=== PATIENT | male | born 1965 | race Caucasian/White ===

== ENCOUNTER 2021-06-18 17:59 | Inpatient (IN) ==
[2021-06-18 18:43] LABS: Bilirubin,Urine Negative (Negative); Blood,Urine Negative (Negative); Clarity,Urine Clear (Clear); Color,Urine Light-Yellow (Yellow); Glucose,Urine (UA) >=1000 mg/dL (Normal); Hyaline Casts,Urine Few per lpf (None Seen); Ketones,Urine Negative (Negative); Leukocyte Esterase,Urine Negative (Negative); Mucus,Urine Few per lpf (None-Few); Nitrite,Urine Negative (Negative); Protein,Urine 70 mg/dL (Neg-Trace); Specific Gravity,Urine > 1.030 (1.010-1.025); Squamous Epithelial Cell,Urine Few per hpf (None-Few); Urobilinogen,Urine Normal (Normal); WBC,Urine 0-3 per hpf (0-3)
[2021-06-18 18:55] LABS: Amphetamine Screen,Urine Positive ng/mL (Cutoff=1000); Barbiturate Screen,Urine Negative ng/mL (Cutoff=200); Benzodiazepines Screen,Urine Negative ng/mL (Cutoff=200); Cannabinoid Screen,Urine Negative ng/mL (Cutoff = 50); Cocaine Screen,Urine Negative ng/mL (Cutoff= 300); Opiate Screen,Urine Negative ng/mL (Cutoff=300); Phencyclidine Screen,Urine Negative ng/mL (Cutoff=25)
[2021-06-18 18:55] LABS: Basophils # 0.1 K/mcL (0.0-0.2); Basophils % 1.2 %; Eosinophils # 0.3 K/mcL (0.0-0.6); Eosinophils % 3.1 %; Hematocrit 44.3 % (37.5-50.1); Hemoglobin 14.6 g/dL (12.9-16.9); Immature Granulocytes % 0.2 % (0-4); Lymphocytes # 2.1 K/mcL (0.6-4.6); Lymphocytes % 25.9 %; Mean Corpuscular Hemoglobin 29.1 pg (28.0-33.3); Mean Corpuscular Volume 88.2 fL (83.0-100.0); Mean Platelet Volume 10.3 fL (9.4-12.4); Monocytes # 0.4 K/mcL (0.0-1.3); Monocytes % 4.8 %; Neutrophils # 5.3 K/mcL (1.6-8.9); Platelet Count 336 K/mcL (140-400); Red Blood Count 5.02 M/mcL (4.19-5.50); Red Cell Distribution Width 13.2 % (11.5-14.5); Segmented Neutrophils % 64.8 %; White Blood Count 8.2 K/mcL (4.3-11.1)
[2021-06-18 19:05] LABS: Acetaminophen < 10 mcg/mL (10-20); BUN/Creatinine Ratio 18 (6-26); Blood Urea Nitrogen 13 mg/dL (6-20); Calcium 9.6 mg/dL (8.6-10.3); Carbon Dioxide 26 mEq/L (23-29); Chloride 103 mEq/L (98-107); Chol/HDL Ratio 3.2 (0-4.9); Cholesterol 142 mg/dL (< 200); Ethanol < 10 mg/dL (Less than 10); Glucose 344 mg/dL (70-105); HDL Cholesterol 44 mg/dL (40-59); LDL Cholesterol,Calculated 66 mg/dL (< 100); Osmolality,Calculated 300 (280-300); Potassium 3.8 mEq/L (3.5-5.1); Salicylate < 2.5 mg/dL (15.0-30.0); Sodium 138 mEq/L (136-145); Triglycerides 162 mg/dL (< 150); eGFR For African Americans > 60 (> 60); eGFR For Non-African Americans > 60 (> 60)
[2021-06-18 20:04] LABS: Estimated Average Glucose 260 mg/dl; Hemoglobin A1C 10.7 %
[2021-06-19 00:16] LABS: Influenza A PCR Negative (Negative); Influenza B PCR Negative (Negative); Resp. Syncytial Virus PCR Negative (Negative)
[2021-06-19 00:20] LABS: SARS-CoV-2 by PCR (In House) Negative (Negative)
[2021-06-19] MEDS ORDERED: *HR* LORazepam 2 MG/ML VIAL IM PRN (00:39)
[2021-06-19] MEDS ORDERED: Ibuprofen 400 MG TABLET PO PRN (00:39)
[2021-06-19] MEDS ORDERED: Haloperidol Lactate 5 MG/ML VIAL IM PRN (00:39)
[2021-06-19] MEDS ORDERED: *HR* LORazepam 1 MG TABLET PO PRN (00:39)
[2021-06-19] MEDS ORDERED: haloperidoL 5 MG TABLET PO PRN (00:39)
[2021-06-19] MEDS ORDERED: Dextrose Gel 15 GM/37.5 ML TUBE PO PRN ×2 (01:21)
[2021-06-19] MEDS ORDERED: *HR* Metformin 500 MG TABLET PO SCH (08:00)
[2021-06-19] MEDS: risperiDONE 1 MG TABLET PO SCH ×2 (10:04→21:09)
[2021-06-19] MEDS: Nicotine 21 MG PATCH.TD24 TD SCH (10:04)
[2021-06-19] MEDS: Insulin LISPRO 300 UNITS/3 ML VIAL SUBQ SCH ×4 (10:05→21:10)
[2021-06-19] MEDS: *HR* Metformin 500 MG TABLET PO SCH (17:29)
[2021-06-19] MEDS: hydrOXYzine pamoate 25 MG CAPSULE PO PRN (21:09)
[2021-06-20] MEDS: *HR* Metformin 500 MG TABLET PO SCH ×2 (08:43→16:53)
[2021-06-20] MEDS: risperiDONE 1 MG TABLET PO SCH ×2 (08:44→20:17)
[2021-06-20] MEDS: Insulin LISPRO 300 UNITS/3 ML VIAL SUBQ SCH ×4 (08:45→20:18)
[2021-06-20] MEDS: Nicotine 21 MG PATCH.TD24 TD SCH ×2 (08:48→10:01)
[2021-06-20] MEDS: Acetaminophen 325 MG TABLET PO PRN (17:15)
[2021-06-20] MEDS: QUEtiapine Fumarate 25 MG TABLET PO PRN (20:17)
[2021-06-21] MEDS: risperiDONE 1 MG TABLET PO SCH ×2 (08:16→21:24)
[2021-06-21] MEDS: *HR* Metformin 500 MG TABLET PO SCH ×2 (08:16→16:48)
[2021-06-21] MEDS: Nicotine 21 MG PATCH.TD24 TD SCH (08:17)
[2021-06-21] MEDS: Insulin LISPRO 300 UNITS/3 ML VIAL SUBQ SCH ×4 (08:50→21:19)
[2021-06-21 20:56] VITALS: O2SAT 98
[2021-06-21] MEDS: QUEtiapine Fumarate 25 MG TABLET PO PRN (21:24)
[2021-06-21] MEDS: Acetaminophen 325 MG TABLET PO PRN (21:24)
[2021-06-21] MEDS: hydrOXYzine pamoate 25 MG CAPSULE PO PRN (21:24)
[2021-06-22] MEDS: Insulin LISPRO 300 UNITS/3 ML VIAL SUBQ SCH ×2 (08:31→12:02)
[2021-06-22] MEDS: *HR* Metformin 500 MG TABLET PO SCH (09:04)
[2021-06-22] MEDS: Nicotine 21 MG PATCH.TD24 TD SCH (09:05)
[2021-06-22] MEDS: risperiDONE 1 MG TABLET PO SCH (09:05)
[2021-06-22 09:38] VITALS: BP 141/86; PULSE 106; TEMP 98.2
== END 2021-06-22 15:50 | disposition home or self-care (01) | DRG 776 ==
LOC: EMEROOARM 17:59 → 1ANU 06-19 00:51
PROVIDERS: ADMIT Internal Medicine; ATTEND Internal Medicine